=== PATIENT | female | born 1965 | race Caucasian/White ===

== ENCOUNTER 2022-12-28 20:19 | Emergency (ER) | payer OTHER | END 2022-12-28 21:06 | disposition home or self-care (01) | LOC: CSHERS 20:19 | DX: T40.2X5A Adverse effect of other opioids, initial encounter (principal); I10 Essential (primary) hypertension; E78.5 Hyperlipidemia, unspecified; F17.210 Nicotine dependence, cigarettes, uncomplicated | CPT/HCPCS: 99281 ==

== ENCOUNTER 2023-06-01 11:15 | Emergency (ER) | payer OTHER | END 2023-06-01 12:39 | disposition home or self-care (01) | LOC: CSHERS 11:15 | DX: S09.90XA Unspecified injury of head, initial encounter (principal); M79.641 Pain in right hand; I10 Essential (primary) hypertension; F17.210 Nicotine dependence, cigarettes, uncomplicated; W18.09XA Striking against other object with subsequent fall, initial encounter ==

== ENCOUNTER 2023-06-04 15:27 | Emergency (ER) | payer OTHER ==
[2023-06-04 16:55] LABS: #Monocytes 0.7 10x3/uL (0.0-1.1); #Neutrophils 10.2 10x3/uL (1.5-8.4); %Basophils 0.1 % (0.0-2.0); %Lymphocytes 14.8 % (18.0-47.0); %Monocytes 5.1 % (0.0-10.0); %Neutrophils 79.7 % (40.0-75.0); Hematocrit 38.9 % (34.9-44.5); Hemoglobin 13.3 g/dL (12.0-15.5); Mean Corpuscular HGB CONC 34.2 g/dL (32.0-36.0); Mean Corpuscular Hemoglobin 33.5 pg (27.0-33.0); Mean Platelet Volume 9.3 fl (7.4-10.4); Platelet Count 366 10x3/uL (150-450); RBC Distribution Width 12.8 % (11.5-14.5); Red Blood Cell (RBC) Count 3.97 10x6/uL (3.90-5.03); White Blood Cell (WBC) Count 12.7 10x3/uL (3.5-10.5)
[2023-06-04 16:58] LABS: ALT (SGPT) 19 U/L (8-55); AST (SGOT) 12 U/L (5-34); Alkaline Phosphatase 75 U/L (40-110); Anion Gap 13 mmol/L (10-20); BUN (Urea Nitrogen) 19 mg/dL (9.8-20.1); Bilirubin, Total 0.3 mg/dL (0.2-1.2); Calc. Creatinine Clearance 0 mL/min (70-130); Calcium 9.8 mg/dL (7.8-10.44); Carbon Dioxide 23 mmol/L (22-29); Chloride 106 mmol/L (98-107); Estimated GFR 67; Globulin 2.8 g/dL (2.4-3.5); Glucose 103 mg/dL (70-105); PTT 23.3 sec (22.0-33.0); Potassium 4.4 mmol/L (3.5-5.1); Protein, Total 6.8 g/dL (6.0-8.3); Prothrombin Time 10.3 sec (9.5-12.1); Sodium 138 mmol/L (136-145)
[2023-06-04 17:02] LABS: Troponin I Less than 0.010 ng/mL (< 0.028)
== END 2023-06-04 17:50 | disposition home or self-care (01) ==
LOC: CSHERS 15:27
DX: R25.1 Tremor, unspecified (principal); F98.5 Adult onset fluency disorder; I10 Essential (primary) hypertension; F17.210 Nicotine dependence, cigarettes, uncomplicated
CPT/HCPCS: 36416; 70450; 80053; 84484; 85025; 85610; 85730; 93005

== ENCOUNTER → 2023-10-13 | Day surgery (SDC) | payer OTHER ==
[~2023-10-13] MED LIST: EPINEPHrine 1 MG/ML AMP ONE; Iopamidol 300 61% 100 ML VIAL FS ONE; Lidocaine 1% PF 5 ML VIAL ONE; Sodium Chloride 0.9% (PF) 10 ML VIAL ONE
== END ==
LOC: CSHRAD 12:14
PROVIDERS: ATTEND Orthopaedic Surgery
PROC: BP29YZZ Computerized Tomography (CT Scan) of Left Shoulder using Other Contrast (ICD-10-PCS; principal; 2023-10-13)
DX: M24.812 Other specific joint derangements of left shoulder, not elsewhere classified (principal); Z88.8 Allergy status to other drugs, medicaments and biological substances; Z88.5 Allergy status to narcotic agent; Z91.041 Radiographic dye allergy status; Z88.6 Allergy status to analgesic agent
CPT/HCPCS: 23350; 77002; J0171; Q9967

== ENCOUNTER 2025-03-27 09:48 | Outpatient (CLI) | payer MEDICAID | END 2025-03-27 09:49 | disposition home or self-care (01) | LOC: CSHCT 09:48 | PROVIDERS: ATTEND Family Medicine | DX: Z12.2 Encounter for screening for malignant neoplasm of respiratory organs (principal); Z87.891 Personal history of nicotine dependence | CPT/HCPCS: 71271 ==